=== PATIENT | male | born 1945 | race Caucasian/White ===

== ENCOUNTER 2018-02-27 16:58 | Emergency (ER) | payer OTHER ==
[~2018-02-27] VITALS: Ht 182.8 cm; Wt 103.9 kg
[2018-02-27] MEDS ORDERED: ZOVIRAX800 MG PO (18:23)
[2018-02-27] MEDS ORDERED: MEDROL DOSEPAK4 MG PO (18:23)
[2018-02-27] MEDS ORDERED: NEURONTIN300 MG PO (18:23)
== END 2018-02-27 19:00 | disposition home or self-care (01) ==
LOC: ED 16:58
DX: B02.9 Zoster without complications (principal)

== ENCOUNTER → 2020-09-11 | Outpatient (CLI) | payer OTHER ==
[~2020-09-11] MED LIST: MEDROL DOSEPAK4 MG PO; NEURONTIN300 MG PO; ZOVIRAX800 MG PO
== END | disposition home or self-care (01) ==
LOC: CT 14:53
PROVIDERS: ATTEND Nurse Practitioner Family
DX: I67.82 Cerebral ischemia (principal); I63.81 Other cerebral infarction due to occlusion or stenosis of small artery

== ENCOUNTER 2022-01-02 03:04 | Emergency (ER) | payer MEDICARE ==
[~2022-01-02] VITALS: Wt 83.0 kg
[2022-01-02 03:37] LABS: BASO # 0.1 10*3/uL (0.0-0.1); BASO % 0.5 % (0.0-1.0); EOS # 0.1 10*3/uL (0.0-0.4); EOS % 0.4 % (1.0-4.0); HEMATOCRIT 43.1 % (42.0-52.0); LYMPH # 0.8 10*3/uL (1.3-4.4); MEAN CELL VOLUME 81.9 fl (80.0-94.0); MEAN CORPUSCULAR HGB 27.2 pg (27.0-31.0); MEAN CORPUSCULAR HGB CONC 33.2 g/dl (33.0-37.0); MONO # 0.7 10*3/uL (0.1-1.0); MONO % 5.8 % (3.0-9.0); NEUT # 10.9 10*3/uL (2.3-7.9); NEUT % 86.6 % (47.0-73.0); PLATELET COUNT AUTOMATED 203 10*3/uL (130-400); RED BLOOD COUNT 5.26 10*6/uL (4.50-5.90); RED CELL DISTRI WIDTH 14.1 % (0-14.5); WHITE BLOOD COUNT 12.6 10*3/uL (4.8-10.8)
[2022-01-02 03:53] LABS: CREATININE 2.04 mg/dL (0.70-1.30); POTASSIUM 4.6 mmol/L (3.5-5.1); TOTAL PROTEIN 6.4 gm/dL (6.4-8.2)
[2022-01-02 04:12] LABS: ACT PARTIAL THROMBO TIME 25.6 SECONDS (20.0-32.1)
[2022-01-02 07:40] LABS: CREATININE 1.78 mg/dL (0.70-1.30); POTASSIUM 5.3 mmol/L (3.5-5.1)
[2022-01-02 12:36] LABS: CREATININE 1.64 mg/dL (0.70-1.30)
[2022-01-02 12:43] LABS: POTASSIUM 3.6 mmol/L (3.5-5.1)
[2022-01-02 12:45] LABS: BILIRUBIN Negative (Negative); BLOOD 3+ (Negative); CLARITY Clear (Clear); COLOR Yellow (Yellow); GLUCOSE 3+ (Negative); KETONE Negative (Negative); LEUKO ESTERASE Negative (Negative); NITRITE Negative (Negative); PH 5.5 (4.5-8.0); SPECIFIC GRAVITY >= 1.030 (1.001-1.030)
[2022-01-02 12:55] LABS: BACTERIA TRACE; MUCOUS TRACE; RBC 41-50 rbc/hpf (0-2); WBC 0-2 wbc/hpf (0-5)
== END 2022-01-02 15:10 | disposition short-term general hospital (02) ==
LOC: ED 03:04
PROVIDERS: Emergency Medicine
DX: K92.2 Gastrointestinal hemorrhage, unspecified (principal); E86.0 Dehydration; E11.00 Type 2 diabetes mellitus with hyperosmolarity without nonketotic hyperglycemic-hyperosmolar coma (NKHHC)

== ENCOUNTER → 2022-06-11 | Outpatient (CLI) | payer OTHER | END | disposition home or self-care (01) | LOC: CT 08:41 | PROVIDERS: ATTEND Family Medicine | DX: K80.80 Other cholelithiasis without obstruction (principal); R16.0 Hepatomegaly, not elsewhere classified; N13.39 Other hydronephrosis; N32.89 Other specified disorders of bladder; N40.0 Benign prostatic hyperplasia without lower urinary tract symptoms ==